=== PATIENT | female | born 1985 | race American Indian/Alaskan Native ===

== ENCOUNTER 2023-08-02 06:42 | Day surgery (SDC) | payer MEDICAID ==
[~2023-08-02] VITALS: Ht 160 cm; Wt 63.5 kg
[2023-08-02 07:34] LABS: HCG,QUAL RESULT NEGATIVE (NEGATIVE)
[2023-08-02] MEDS ORDERED: MIDAZOLAM HCL 5 MG/5 ML VIAL ONE ×2 (08:00→08:34)
[2023-08-02] MEDS ORDERED: BENZOCAINE 20% 0.5mL UD SPRAY MM ONE (08:00)
[2023-08-02] MEDS ORDERED: MEPERIDINE 100 MG INJ. 100 MG/ML VIAL ONE (08:00)
[2023-08-02] MEDS ORDERED: SIMETHICONE 40 MG/0.6 ML ML ONE (08:22)
[2023-08-02] MEDS ORDERED: ONDANSETRON HCL 4 MG/2 ML VIAL ONE (08:33)
[2023-08-02] MEDS ORDERED: DIPHENHYDRAMINE INJ 50 MG/ML VIAL ONE (08:33)
[2023-08-02 16:23] VITALS: BP_SYST 97; PULSE 58; RESP 16
== END 2023-08-02 10:10 | disposition home or self-care (01) ==
LOC: SDS 06:42 → SMU 06:44 → SDS 10:10
PROVIDERS: ATTEND Internal Medicine
DX: R13.10 Dysphagia, unspecified (principal); K29.80 Duodenitis without bleeding; K29.50 Unspecified chronic gastritis without bleeding; K21.00 Gastro-esophageal reflux disease with esophagitis, without bleeding; F41.9 Anxiety disorder, unspecified; Z79.899 Other long term (current) drug therapy
CPT/HCPCS: 43249; 43239; 99152; 84703; 88305; 88312; 88313; G0378; J1200; J2250; J2405; J2175; C1769